=== PATIENT | male | born 1995 | race Caucasian/White ===

== ENCOUNTER 2018-08-28 20:18 | Inpatient (IN) | payer BC ==
[2018-08-28] MEDS ORDERED: Ketorolac 30 MG/ML SDV IVPUSH ONE (20:27)
[2018-08-28] MEDS ORDERED: Sodium Chloride 0.9% 2.5 ML Syringe FLUSH PRN (20:27)
[2018-08-28] MEDS ORDERED: Ondansetron 4 MG/2 ML SDV IVPUSH ONE (20:27)
[2018-08-28] MEDS ORDERED: Sodium Chloride 0.9% 1,000 ML IV ONE (20:27)
[2018-08-28] MEDS ORDERED: Sodium Chloride 0.9% 10 ML Syringe FLUSH PRN (20:27)
[2018-08-28] MEDS ORDERED: Insulin Regular, Human 100 Units/ML 10 ML Vial SUBCUT ONE (20:28)
--- NOTE | 2018-08-28 20:32 | EDM.PDOC ---
ED HPI GENERAL MEDICAL PROBLEM - General Chief Complaint: Diabetic Complaint Stated Complaint: DIABETIC ISSUES Time Seen by Provider: 08/28/18 20:22 - History of Present Illness INITIAL COMMENTS - FREE TEXT/NARRATIVE: HISTORY AND PHYSICAL: History of present illness: The patient is a 22-year-old male with a history of type 1 diabetes since he was 8 years old and has an insulin pump in place and says that he has not had any admissions to the hospital since he was a child presents with elevated blood sugars dry mouth and nausea. The patient says he is usually "on top of things" and was doing fine yesterday but today he did not have his blood sugar monitor and did not check his blood sugar and is sugar shot up. Usually he has his insulin pump and then gives boluses of insulin pending his blood sugar but he did not give himself any boluses today. He says he is watching his diet and has no other systemic issues such as fever chills upper respiratory symptoms abdominal pain or diarrhea. He says he is nauseated but has not vomited and he' s having diffuse chest pain since this escalated. He is not passing out or blacking out and he says he has not noticed if he has been urinating more than usual but there is no pain or burning with urination. He arrives via EMS and per EMS his blood sugar was 571. Insulin Pump was removed on arrival to the ED Review of systems: As per history of present illness and below otherwise all systems reviewed and negative. Past medical history: As per history of present illness and as reviewed below otherwise noncontributory. Surgical history: As per history of present illness and as reviewed below otherwise noncontributory. Social history: No reported history of drug or alcohol abuse. Family history: As per history of present illness and as reviewed below otherwise noncontributory. Physical exam: General: Well-developed well-nourished thin man who is nontoxic and speaking clearly and easily in the ED. His vital signs are noted by me HEENT: Atraumatic, normocephalic, pupils reactive, negative for conjunctival pallor or scleral icterus, mucous membranes very dry throat clear, neck supple, nontender, trachea midline. Lungs: Clear to auscultation, breath sounds equal bilaterally, chest nontender. No wheezing stridor or work of breathing Heart: S1S2, regular rhythm but tachycardic rate of my evaluation and no overt murmurs, negative for clicks, rubs, or JVD. Abdomen: Soft, nondistended, nontender. Negative for masses or hepatosplenomegaly. Slightly hypoactive bowel sounds Pelvis: Stable nontender. Genitourinary: Deferred. Rectal: Deferred. Extremities: Atraumatic, full range of motion without defects or deficits Neurovascular unremarkable. Neuro: Awake, alert, oriented. Cranial nerves II through XII unremarkable. Cerebellum unremarkable. Motor and sensory unremarkable throughout. Exam nonfocal. Diagnostics: EKG CBC CMP lipase UA serum ketones venous blood gas troponin chest x-ray Therapeutics: IV O2 monitor IV fluids Zofran Toradol insulin Please note that the patient got 1 L of normal saline per EMS prior to arrival. 2111: Case was discussed with Dr. Hensley our hospitalist who except the patient for admission. He is aware of the IV fluids at a been given as well as the meds. I've also discussed all testing results with the patient and the need for inpatient admission for DKA Impression: Diabetic ketoacidosis Definitive disposition and diagnosis as appropriate pending reevaluation and review of above. Chest Pain Score (Numeric/FACES): 8 - Related Data Allergies Allergy/AdvReac Type Severity Reaction Status Date / Time No Known Allergies Allergy Verified 08/28/18 20:23 Home Meds: Home Meds Insulin Aspart [NovoLOG] 1,000 unit .XX ASDIRECTED 08/28/18 [History] Sertraline [Zoloft] 0 mg PO DAILY 08/28/18 [History] Past Medical History Psychiatric History: Reports: Anxiety, Depression Endocrine/Metabolic History: Reports: Diabetes, Type I Social & Family History - Tobacco Use Smoking Status *Q: Current Every Day Smoker Years of Tobacco use: 6 Packs/Tins Daily: 1.5 - Recreational Drug Use Recreational Drug Use: No ED ROS GENERAL - Review of Systems Review Of Systems: ROS reveals no pertinent complaints other than HPI. ED EXAM GENERAL NO PERIP PULSE - Physical Exam Exam: See Below (see dictation) Course - Vital Signs Last Recorded V/S: Last Vital Signs Temp 37.0 C 08/28/18 20:20 Pulse 103 H 08/28/18 20:20 Resp 26 H 08/28/18 20:20 BP 140/86 08/28/18 20:20 Pulse Ox 99 08/28/18 20:29 - Orders/Labs/Meds Orders: Active Orders 24 hr Category Date Time Status Patient Status [ADT] Stat ADT 08/28/18 21:31 Ordered Blood Glucose Check, Bedside [RC] ONETIME Care 08/28/18 20:26 Active Cardiac Monitoring [RC] . DIRECTED Care 08/28/18 20:26 Active EKG Documentation Completion [RC] STAT Care 08/28/18 20:26 Active Oxygen Therapy, ED [RC] ASDIRECTED Care 08/28/18 20:26 Active Pulse Oximetry [RC] ASDIRECTED Care 08/28/18 20:26 Active Chest 1V Frontal [CR] Stat Exams 08/28/18 20:27 Taken Insulin Regular, Human [NovoLIN R] 100 unit Med 08/28/18 21:00 Active Sodium Chloride 0.9% [Normal Saline] 99 ml IV TITRATE Sodium Chloride 0.9% @ 125 MLS/HR (1,000ml) Med 08/28/18 21:45 Ordered Sodium Chloride 0.9% [Normal Saline] 1,000 ml IV ASDIRECTED Sodium Chloride 0.9% [Saline Flush] Med 08/28/18 20:27 Active 10 ml FLUSH ASDIRECTED PRN Sodium Chloride 0.9% [Saline Flush] Med 08/28/18 20:27 Active 2.5 ml FLUSH ASDIRECTED PRN Saline Lock Insert [OM.PC] Stat Oth 08/28/18 20:26 Ordered Medication Orders Insulin Human Regular 100 unit (/ Sodium Chloride) 100 mls @ 7 mls/hr IV TITRATE LIZANDRO; Protocol Sodium Chloride (Saline Flush) 10 ml FLUSH ASDIRECTED PRN PRN Reason: Keep Vein Open Last Admin: 08/28/18 20:56 Dose: 10 ml Sodium Chloride (Saline Flush) 2.5 ml FLUSH ASDIRECTED PRN PRN Reason: Keep Vein Open Last Admin: 08/28/18 20:57 Dose: 2.5 ml Labs: Laboratory Tests 08/28/18 08/28/18 08/28/18 Range/Units 20:23 20:25 20:25 WBC 13.40 H (4.0-11.0) K/uL RBC 5.09 (4.50-5.90) M/uL Hgb 15.1 (13.0-17.0) g/dL Hct 44.4 (38.0-50.0) % MCV 87.2 (80.0-98.0) fL MCH 29.7 (27.0-32.0) pg MCHC 34.0 (31.0-37.0) g/dL RDW Std Deviation 40.9 (28.0-62.0) fl RDW Coeff of Ally 13 (11.0-15.0) % Plt Count 260 (150-400) K/uL MPV 10.30 (7.40-12.00) fL Neut % (Auto) 72.7 (48.0-80.0) % Lymph % (Auto) 18.8 (16.0-40.0) % [place] % (Auto) 7.3 (0.0-15.0) % Eos % (Auto) 0.7 (0.0-7.0) % Baso % (Auto) 0.5 (0.0-1.5) % Neut # (Auto) 9.7 H (1.4-5.7) K/uL Lymph # (Auto) 2.5 H (0.6-2.4) K/uL [place] # (Auto) 1.0 H (0.0-0.8) K/uL Eos # (Auto) 0.1 (0.0-0.7) K/uL Baso # (Auto) 0.1 (0.0-0.1) K/uL Nucleated RBC % 0.0 /100WBC Nucleated RBCs # 0 K/uL VBG pH (7.31-7.41) VBG pCO2 (35-45) mmHG VBG pO2 (30-40) mmHG VBG HCO3 (22-30) mEq/L VBG Total CO2 (41-51) mmol/L VBG Base Excess (-3.0-3.0) Sodium 129 L (136-148) mmol/L Potassium 5.5 H (3.5-5.1) mmol/L Chloride 94 L (98-107) mmol/L Carbon Dioxide 7.9 L (21.0-32.0) mmol/L BUN 23 H (7.0-18.0) mg/dL Creatinine 1.2 (0.8-1.3) mg/dL Est Cr Clr Drug Dosing TNP Estimated GFR (MDRD) > 60.0 ml/min Glucose 564 H* (74-106) mg/dL POC Glucose > 500 H (60-110) mg/dL Calcium 9.8 (8.5-10.1) mg/dL Total Bilirubin 0.6 (0.2-1.0) mg/dL AST 22 (15-37) IU/L ALT 36 (14-63) IU/L Alkaline Phosphatase 93 (46-116) U/L Troponin I < 0.050 (0.000-0.056) ng/mL Total Protein 7.7 (6.4-8.2) g/dL Albumin 4.2 (3.4-5.0) g/dL Globulin 3.5 (2.6-4.0) g/dL Albumin/Globulin Ratio 1.2 (0.9-1.6) Lipase 54 L (73-393) U/L Urine Color Urine Appearance Urine pH (5.0-8.0) Ur Specific [place] (1.001-1.035) Urine Protein (NEGATIVE) mg/dL Urine Glucose (UA) (NEGATIVE) mg/dL Urine Ketones (NEGATIVE) mg/dL Urine Occult Blood (NEGATIVE) Urine Nitrite (NEGATIVE) Urine Bilirubin (NEGATIVE) Urine Urobilinogen (<2.0) EU/dL Ur Leukocyte Esterase (NEGATIVE) Urine RBC (0-2/HPF) Urine WBC (0-5/HPF) Ur Epithelial Cells (NONE-FEW) Urine Bacteria (NEGATIVE) Ketones (NEG) 08/28/18 08/28/18 08/28/18 Range/Units 20:25 20:35 20:36 WBC (4.0-11.0) K/uL RBC (4.50-5.90) M/uL Hgb (13.0-17.0) g/dL Hct (38.0-50.0) % MCV (80.0-98.0) fL MCH (27.0-32.0) pg MCHC (31.0-37.0) g/dL RDW Std Deviation (28.0-62.0) fl RDW Coeff of Ally (11.0-15.0) % Plt Count (150-400) K/uL MPV (7.40-12.00) fL Neut % (Auto) (48.0-80.0) % Lymph % (Auto) (16.0-40.0) % [place] % (Auto) (0.0-15.0) % Eos % (Auto) (0.0-7.0) % Baso % (Auto) (0.0-1.5) % Neut # (Auto) (1.4-5.7) K/uL Lymph # (Auto) (0.6-2.4) K/uL [place] # (Auto) (0.0-0.8) K/uL Eos # (Auto) (0.0-0.7) K/uL Baso # (Auto) (0.0-0.1) K/uL Nucleated RBC % /100WBC Nucleated RBCs # K/uL VBG pH 7.05 L (7.31-7.41) VBG pCO2 36 (35-45) mmHG VBG pO2 34 (30-40) mmHG VBG HCO3 10 L (22-30) mEq/L VBG Total CO2 10 L (41-51) mmol/L VBG Base Excess -19.9 L (-3.0-3.0) Sodium (136-148) mmol/L Potassium (3.5-5.1) mmol/L Chloride (98-107) mmol/L Carbon Dioxide (21.0-32.0) mmol/L BUN (7.0-18.0) mg/dL Creatinine (0.8-1.3) mg/dL Est Cr Clr Drug Dosing Estimated GFR (MDRD) ml/min Glucose (74-106) mg/dL POC Glucose (60-110) mg/dL Calcium (8.5-10.1) mg/dL Total Bilirubin (0.2-1.0) mg/dL AST (15-37) IU/L ALT (14-63) IU/L Alkaline Phosphatase (46-116) U/L Troponin I (0.000-0.056) ng/mL Total Protein (6.4-8.2) g/dL Albumin (3.4-5.0) g/dL Globulin (2.6-4.0) g/dL Albumin/Globulin Ratio (0.9-1.6) Lipase (73-393) U/L Urine Color YELLOW Urine Appearance CLEAR Urine pH 5.5 (5.0-8.0) Ur Specific [place] 1.020 (1.001-1.035) Urine Protein NEGATIVE (NEGATIVE) mg/dL Urine Glucose (UA) >=1000 (NEGATIVE) mg/dL Urine Ketones >=80 (NEGATIVE) mg/dL Urine Occult Blood NEGATIVE (NEGATIVE) Urine Nitrite NEGATIVE (NEGATIVE) Urine Bilirubin NEGATIVE (NEGATIVE) Urine Urobilinogen 0.2 (<2.0) EU/dL Ur Leukocyte Esterase NEGATIVE (NEGATIVE) Urine RBC 0-1 (0-2/HPF) Urine WBC 0-1 (0-5/HPF) Ur Epithelial Cells RARE (NONE-FEW) Urine Bacteria FEW (NEGATIVE) Ketones SMALL H (NEG) Meds: Medications Generic Name Dose Route Start Last Admin Trade Name Freq PRN Reason Stop Dose Admin Insulin Human Regular 100 unit 100 mls @ 7 mls/hr 08/28/18 21:00 / Sodium Chloride IV TITRATE LIZANDRO Protocol 7 UNIT/HR Sodium Chloride 10 ml 08/28/18 20:27 08/28/18 20:56 Saline Flush FLUSH 10 ml ASDIRECTED PRN Administration Keep Vein Open Sodium Chloride 2.5 ml 08/28/18 20:27 08/28/18 20:57 Saline Flush FLUSH 2.5 ml ASDIRECTED PRN Administration Keep Vein Open Discontinued Medications Generic Name Dose Route Start Last Admin Trade Name Freq PRN Reason Stop Dose Admin Sodium Chloride 1,000 mls @ 999 mls/hr 08/28/18 20:27 08/28/18 20:42 Normal Saline IV 08/28/18 21:27 999 mls/hr STAT ONE Administration Insulin Human Regular 15 unit 08/29/18 20:28 Novolin R SUBCUT 08/29/18 20:29 ONETIME ONE Protocol Insulin Human Regular 15 unit 08/28/18 20:28 08/28/18 20:56 Novolin R SUBCUT 08/28/18 20:29 15 units ONETIME ONE Administration Protocol Ketorolac Tromethamine 30 mg 08/28/18 20:27 08/28/18 20:43 Toradol IVPUSH 08/28/18 20:28 30 mg ONETIME ONE Administration Ondansetron HCl 4 mg 08/28/18 20:27 08/28/18 20:44 Zofran IVPUSH 08/28/18 20:28 4 mg ONETIME ONE Administration Departure - Departure Time of Disposition: 21:33 Disposition: Admitted As Inpatient 66 Condition: Good Clinical Impression: Diabetic ketoacidosis associated with type 1 diabetes mellitus Qualifiers: Diabetes mellitus complication detail: without coma Qualified Code(s): E10.10 - Type 1 diabetes mellitus with ketoacidosis without coma - Discharge Information Forms: ED Department Discharge - My Orders Last 24 Hours: My Active Orders 08/28/18 20:26 Blood Glucose Check, Bedside [RC] ONETIME Cardiac Monitoring [RC] . DIRECTED EKG Documentation Completion [RC] STAT Oxygen Therapy, ED [RC] ASDIRECTED Pulse Oximetry [RC] ASDIRECTED Saline Lock Insert [OM.PC] Stat 08/28/18 20:27 Chest 1V Frontal [CR] Stat Sodium Chloride 0.9% [Saline Flush] 10 ml FLUSH ASDIRECTED PRN Sodium Chloride 0.9% [Saline Flush] 2.5 ml FLUSH ASDIRECTED PRN 08/28/18 21:00 Insulin Regular, Human [NovoLIN R] 100 unit Sodium Chloride 0.9% [Normal Saline] 99 ml IV TITRATE 08/28/18 21:31 Patient Status [ADT] Stat 08/28/18 21:45 Sodium Chloride 0.9% @ 125 MLS/HR (1,000ml) Sodium Chloride 0.9% [Normal Saline ] 1,000 ml IV ASDIRECTED - Assessment/Plan Last 24 Hours: My Active Orders 08/28/18 20:26 Blood Glucose Check, Bedside [RC] ONETIME Cardiac Monitoring [RC] . DIRECTED EKG Documentation Completion [RC] STAT Oxygen Therapy, ED [RC] ASDIRECTED Pulse Oximetry [RC] ASDIRECTED Saline Lock Insert [OM.PC] Stat 08/28/18 20:27 Chest 1V Frontal [CR] Stat Sodium Chloride 0.9% [Saline Flush] 10 ml FLUSH ASDIRECTED PRN Sodium Chloride 0.9% [Saline Flush] 2.5 ml FLUSH ASDIRECTED PRN 08/28/18 21:00 Insulin Regular, Human [NovoLIN R] 100 unit Sodium Chloride 0.9% [Normal Saline] 99 ml IV TITRATE 08/28/18 21:31 Patient Status [ADT] Stat 08/28/18 21:45 Sodium Chloride 0.9% @ 125 MLS/HR (1,000ml) Sodium Chloride 0.9% [Normal Saline ] 1,000 ml IV ASDIRECTED
[2018-08-28 20:52] LABS: CHLORIDE,CL 94 mmol/L (98-107); SODIUM,NA 129 mmol/L (136-148)
[2018-08-28] MEDS ORDERED: Sodium Chloride 0.9% 1,000 ML IV SCH ×2 (21:45→23:15)
[2018-08-28] MEDS ORDERED: Ondansetron 4 MG Tab.DIS PO PRN (23:08)
--- NOTE | 2018-08-28 23:17 | PCM.HP ---
H&P History of Present Illness - General Date of Service: 08/28/18 Admit Problem/Dx: Admission Diagnosis/Problem Admission Diagnosis/Problem Ketoacidosis in patient with type 1 diabetes mellitus - History of Present Illness Initial Comments - Free Text/Narative: 22 yo male with pmh of type 1 DM who manages his blood sugars with an insulin pump. He states he usually checks his blood sugars 3-4 times a day and it usually varies between 100s to mid 200s. Today he had a tough day at work filled with anxiety due to his boss stressing him out about deadlines. He did not check his blood sugars all day nor did he eat. He developed abdominal pain and nausea tonight and came to the ED where his blood glucose was noted to be above 500 and noted to have a metabolic acidosis with anion gap. Chest Pain Score (Numeric/FACES): 8 - Related Data Allergies/Adverse Reactions: Allergies Allergy/AdvReac Type Severity Reaction Status Date / Time No Known Allergies Allergy Verified 08/28/18 20:23 Home Medications: Home Meds Insulin Aspart [NovoLOG] 1,000 unit .XX ASDIRECTED 08/28/18 [History] Sertraline [Zoloft] 0 mg PO DAILY 08/28/18 [History] Past Medical History Psychiatric History: Reports: Anxiety, Depression Endocrine/Metabolic History: Reports: Diabetes, Type I Social & Family History - Tobacco Use Smoking Status *Q: Current Every Day Smoker Years of Tobacco use: 6 Packs/Tins Daily: 1.5 - Recreational Drug Use Recreational Drug Use: No H&P Review of Systems - Review of Systems: Review Of Systems: ROS reveals no pertinent complaints other than HPI. Exam - Exam Exam: See Below - Vital Signs Vital Signs: Last Vital Signs Temp 37.0 C 08/28/18 20:20 Pulse 104 H 08/28/18 22:36 Resp 18 08/28/18 22:36 BP 132/75 08/28/18 22:36 Pulse Ox 99 08/28/18 22:36 Weight: 79.379 kg - Exam General: Alert, Oriented Neck: Supple, Trachea Midline Lungs: Clear to Auscultation, Normal Respiratory Effort Cardiovascular: Regular Rate, Regular Rhythm GI/Abdominal Exam: Soft, Non-Tender Extremities: Non-Tender Skin: Warm, Dry, Intact - Patient Data Lab Results Last 24 hrs: Laboratory Results - last 24 hr 08/28/18 08/28/18 08/28/18 Range/Units 20:23 20:25 20:25 WBC 13.40 H (4.0-11.0) K/uL RBC 5.09 (4.50-5.90) M/uL Hgb 15.1 (13.0-17.0) g/dL Hct 44.4 (38.0-50.0) % MCV 87.2 (80.0-98.0) fL MCH 29.7 (27.0-32.0) pg MCHC 34.0 (31.0-37.0) g/dL RDW Std Deviation 40.9 (28.0-62.0) fl RDW Coeff of Ally 13 (11.0-15.0) % Plt Count 260 (150-400) K/uL MPV 10.30 (7.40-12.00) fL Neut % (Auto) 72.7 (48.0-80.0) % Lymph % (Auto) 18.8 (16.0-40.0) % [place] % (Auto) 7.3 (0.0-15.0) % Eos % (Auto) 0.7 (0.0-7.0) % Baso % (Auto) 0.5 (0.0-1.5) % Neut # (Auto) 9.7 H (1.4-5.7) K/uL Lymph # (Auto) 2.5 H (0.6-2.4) K/uL [place] # (Auto) 1.0 H (0.0-0.8) K/uL Eos # (Auto) 0.1 (0.0-0.7) K/uL Baso # (Auto) 0.1 (0.0-0.1) K/uL Nucleated RBC % 0.0 /100WBC Nucleated RBCs # 0 K/uL VBG pH (7.31-7.41) VBG pCO2 (35-45) mmHG VBG pO2 (30-40) mmHG VBG HCO3 (22-30) mEq/L VBG Total CO2 (41-51) mmol/L VBG Base Excess (-3.0-3.0) Sodium 129 L (136-148) mmol/L Potassium 5.5 H (3.5-5.1) mmol/L Chloride 94 L (98-107) mmol/L Carbon Dioxide 7.9 L (21.0-32.0) mmol/L BUN 23 H (7.0-18.0) mg/dL Creatinine 1.2 (0.8-1.3) mg/dL Est Cr Clr Drug Dosing TNP Estimated GFR (MDRD) > 60.0 ml/min Glucose 564 H* (74-106) mg/dL POC Glucose > 500 H (60-110) mg/dL Calcium 9.8 (8.5-10.1) mg/dL Total Bilirubin 0.6 (0.2-1.0) mg/dL AST 22 (15-37) IU/L ALT 36 (14-63) IU/L Alkaline Phosphatase 93 (46-116) U/L Troponin I < 0.050 (0.000-0.056) ng/mL Total Protein 7.7 (6.4-8.2) g/dL Albumin 4.2 (3.4-5.0) g/dL Globulin 3.5 (2.6-4.0) g/dL Albumin/Globulin Ratio 1.2 (0.9-1.6) Lipase 54 L (73-393) U/L Urine Color Urine Appearance Urine pH (5.0-8.0) Ur Specific [place] (1.001-1.035) Urine Protein (NEGATIVE) mg/dL Urine Glucose (UA) (NEGATIVE) mg/dL Urine Ketones (NEGATIVE) mg/dL Urine Occult Blood (NEGATIVE) Urine Nitrite (NEGATIVE) Urine Bilirubin (NEGATIVE) Urine Urobilinogen (<2.0) EU/dL Ur Leukocyte Esterase (NEGATIVE) Urine RBC (0-2/HPF) Urine WBC (0-5/HPF) Ur Epithelial Cells (NONE-FEW) Urine Bacteria (NEGATIVE) Ketones (NEG) 08/28/18 08/28/18 08/28/18 Range/Units 20:25 20:35 20:36 WBC (4.0-11.0) K/uL RBC (4.50-5.90) M/uL Hgb (13.0-17.0) g/dL Hct (38.0-50.0) % MCV (80.0-98.0) fL MCH (27.0-32.0) pg MCHC (31.0-37.0) g/dL RDW Std Deviation (28.0-62.0) fl RDW Coeff of Ally (11.0-15.0) % Plt Count (150-400) K/uL MPV (7.40-12.00) fL Neut % (Auto) (48.0-80.0) % Lymph % (Auto) (16.0-40.0) % [place] % (Auto) (0.0-15.0) % Eos % (Auto) (0.0-7.0) % Baso % (Auto) (0.0-1.5) % Neut # (Auto) (1.4-5.7) K/uL Lymph # (Auto) (0.6-2.4) K/uL [place] # (Auto) (0.0-0.8) K/uL Eos # (Auto) (0.0-0.7) K/uL Baso # (Auto) (0.0-0.1) K/uL Nucleated RBC % /100WBC Nucleated RBCs # K/uL VBG pH 7.05 L (7.31-7.41) VBG pCO2 36 (35-45) mmHG VBG pO2 34 (30-40) mmHG VBG HCO3 10 L (22-30) mEq/L VBG Total CO2 10 L (41-51) mmol/L VBG Base Excess -19.9 L (-3.0-3.0) Sodium (136-148) mmol/L Potassium (3.5-5.1) mmol/L Chloride (98-107) mmol/L Carbon Dioxide (21.0-32.0) mmol/L BUN (7.0-18.0) mg/dL Creatinine (0.8-1.3) mg/dL Est Cr Clr Drug Dosing Estimated GFR (MDRD) ml/min Glucose (74-106) mg/dL POC Glucose (60-110) mg/dL Calcium (8.5-10.1) mg/dL Total Bilirubin (0.2-1.0) mg/dL AST (15-37) IU/L ALT (14-63) IU/L Alkaline Phosphatase (46-116) U/L Troponin I (0.000-0.056) ng/mL Total Protein (6.4-8.2) g/dL Albumin (3.4-5.0) g/dL Globulin (2.6-4.0) g/dL Albumin/Globulin Ratio (0.9-1.6) Lipase (73-393) U/L Urine Color YELLOW Urine Appearance CLEAR Urine pH 5.5 (5.0-8.0) Ur Specific [place] 1.020 (1.001-1.035) Urine Protein NEGATIVE (NEGATIVE) mg/dL Urine Glucose (UA) >=1000 (NEGATIVE) mg/dL Urine Ketones >=80 (NEGATIVE) mg/dL Urine Occult Blood NEGATIVE (NEGATIVE) Urine Nitrite NEGATIVE (NEGATIVE) Urine Bilirubin NEGATIVE (NEGATIVE) Urine Urobilinogen 0.2 (<2.0) EU/dL Ur Leukocyte Esterase NEGATIVE (NEGATIVE) Urine RBC 0-1 (0-2/HPF) Urine WBC 0-1 (0-5/HPF) Ur Epithelial Cells RARE (NONE-FEW) Urine Bacteria FEW (NEGATIVE) Ketones SMALL H (NEG) 08/28/18 Range/Units 21:47 WBC (4.0-11.0) K/uL RBC (4.50-5.90) M/uL Hgb (13.0-17.0) g/dL Hct (38.0-50.0) % MCV (80.0-98.0) fL MCH (27.0-32.0) pg MCHC (31.0-37.0) g/dL RDW Std Deviation (28.0-62.0) fl RDW Coeff of Ally (11.0-15.0) % Plt Count (150-400) K/uL MPV (7.40-12.00) fL Neut % (Auto) (48.0-80.0) % Lymph % (Auto) (16.0-40.0) % [place] % (Auto) (0.0-15.0) % Eos % (Auto) (0.0-7.0) % Baso % (Auto) (0.0-1.5) % Neut # (Auto) (1.4-5.7) K/uL Lymph # (Auto) (0.6-2.4) K/uL [place] # (Auto) (0.0-0.8) K/uL Eos # (Auto) (0.0-0.7) K/uL Baso # (Auto) (0.0-0.1) K/uL Nucleated RBC % /100WBC Nucleated RBCs # K/uL VBG pH (7.31-7.41) VBG pCO2 (35-45) mmHG VBG pO2 (30-40) mmHG VBG HCO3 (22-30) mEq/L VBG Total CO2 (41-51) mmol/L VBG Base Excess (-3.0-3.0) Sodium (136-148) mmol/L Potassium (3.5-5.1) mmol/L Chloride (98-107) mmol/L Carbon Dioxide (21.0-32.0) mmol/L BUN (7.0-18.0) mg/dL Creatinine (0.8-1.3) mg/dL Est Cr Clr Drug Dosing Estimated GFR (MDRD) ml/min Glucose (74-106) mg/dL POC Glucose 452 H (60-110) mg/dL Calcium (8.5-10.1) mg/dL Total Bilirubin (0.2-1.0) mg/dL AST (15-37) IU/L ALT (14-63) IU/L Alkaline Phosphatase (46-116) U/L Troponin I (0.000-0.056) ng/mL Total Protein (6.4-8.2) g/dL Albumin (3.4-5.0) g/dL Globulin (2.6-4.0) g/dL Albumin/Globulin Ratio (0.9-1.6) Lipase (73-393) U/L Urine Color Urine Appearance Urine pH (5.0-8.0) Ur Specific [place] (1.001-1.035) Urine Protein (NEGATIVE) mg/dL Urine Glucose (UA) (NEGATIVE) mg/dL Urine Ketones (NEGATIVE) mg/dL Urine Occult Blood (NEGATIVE) Urine Nitrite (NEGATIVE) Urine Bilirubin (NEGATIVE) Urine Urobilinogen (<2.0) EU/dL Ur Leukocyte Esterase (NEGATIVE) Urine RBC (0-2/HPF) Urine WBC (0-5/HPF) Ur Epithelial Cells (NONE-FEW) Urine Bacteria (NEGATIVE) Ketones (NEG) Result Diagrams: 08/29/18 03:16 08/29/18 12:10 Problem List Initiated/Reviewed/Updated: Yes Orders Last 24hrs: Active Orders 24 hr Category Date Time Status Patient Status [ADT] Stat ADT 08/28/18 21:31 Active Blood Glucose Check, Bedside [] ONETIME Care 08/28/18 20:26 Active Blood Glucose Check, Bedside [RC] Q1HR Care 08/28/18 23:12 Ordered Cardiac Monitoring [RC] . DIRECTED Care 08/28/18 20:26 Active EKG Documentation Completion [RC] STAT Care 08/28/18 20:26 Active Oxygen Therapy [RC] PRN Care 08/28/18 23:08 Ordered Oxygen Therapy, ED [RC] ASDIRECTED Care 08/28/18 20:26 Active Pulse Oximetry [RC] ASDIRECTED Care 08/28/18 20:26 Active Up ad Mary Lou [RC] ASDIRECTED Care 08/28/18 23:08 Ordered VTE/DVT Education [RC] PER UNIT ROUTINE Care 08/28/18 23:08 Ordered Vital Signs [RC] Q4H Care 08/28/18 23:08 Ordered Chest 1V Frontal [CR] Stat Exams 08/28/18 20:27 Taken BASIC METABOLIC PANEL,BMP [CHEM] Q4H Lab 08/28/18 23:08 Ordered BASIC METABOLIC PANEL,BMP [CHEM] Q4H Lab 08/29/18 03:08 Ordered BASIC METABOLIC PANEL,BMP [CHEM] Q4H Lab 08/29/18 07:08 Ordered BASIC METABOLIC PANEL,BMP [CHEM] Q4H Lab 08/29/18 11:08 Ordered BASIC METABOLIC PANEL,BMP [CHEM] Q4H Lab 08/29/18 15:08 Ordered BASIC METABOLIC PANEL,BMP [CHEM] Q4H Lab 08/29/18 19:08 Ordered CBC WITH AUTO DIFF [HEME] AM Lab 08/29/18 05:11 Ordered GLYCOSYLATED HEMOGLOBIN,HGBA1C [CHEM] AM Lab 08/29/18 05:11 Ordered Insulin Regular, Human [NovoLIN R] 100 unit Med 08/28/18 21:00 Active Sodium Chloride 0.9% [Normal Saline] 99 ml IV TITRATE Ondansetron [Zofran ODT] Med 08/28/18 23:08 Ordered 4 mg PO Q4H PRN Sodium Chloride 0.9% [Normal Saline] 1,000 ml Med 08/28/18 21:45 Active IV ASDIRECTED Sodium Chloride 0.9% [Normal Saline] 1,000 ml Med 08/28/18 23:15 Ordered IV ASDIRECTED Sodium Chloride 0.9% [Saline Flush] Med 08/28/18 20:27 Active 10 ml FLUSH ASDIRECTED PRN Sodium Chloride 0.9% [Saline Flush] Med 08/28/18 20:27 Active 2.5 ml FLUSH ASDIRECTED PRN Saline Lock Insert [OM.PC] Stat Oth 08/28/18 20:26 Ordered Sequential Compression Device [OM.PC] Per Unit Routine Oth 08/28/18 23:09 Ordered Resuscitation Status Routine Resus Stat 08/28/18 23:08 Ordered Medication Orders Insulin Human Regular 100 unit (/ Sodium Chloride) 100 mls @ 7 mls/hr IV TITRATE LIZANDRO; Protocol Last Admin: 08/28/18 21:58 Dose: 7 unit/hr, 7 mls/hr Sodium Chloride (Normal Saline) 1,000 mls @ 125 mls/hr IV ASDIRECTED LIZANDRO Last Admin: 08/28/18 21:38 Dose: 125 mls/hr Ondansetron HCl (Zofran Odt) 4 mg PO Q4H PRN PRN Reason: nausea, able to take PO Sodium Chloride (Saline Flush) 10 ml FLUSH ASDIRECTED PRN PRN Reason: Keep Vein Open Last Admin: 08/28/18 20:56 Dose: 10 ml Sodium Chloride (Saline Flush) 2.5 ml FLUSH ASDIRECTED PRN PRN Reason: Keep Vein Open Last Admin: 08/28/18 20:57 Dose: 2.5 ml Assessment/Plan Comment:: 22 yo male admitted for DKA. We will resuscitate with IV fluids and treat his ketoacidosis with insulin drip. We will trend BMP to ensure resolution of acidosis.
[2018-08-28 23:55] LABS: CHLORIDE,CL 99 mmol/L (98-107); SODIUM,NA 132 mmol/L (136-148)
[2018-08-29] MEDS ORDERED: Dextrose 5%-0.9% NaCl 1,000 ML IV SCH (00:45)
[2018-08-29 03:32] LABS: CHLORIDE,CL 105 mmol/L (98-107); SODIUM,NA 137 mmol/L (136-148)
[2018-08-29 03:36] LABS: HEMOGLOBIN A1C 10.7 % (4.5-6.2)
[2018-08-29] MEDS ORDERED: D5 1/2 NS w/ 20 mEq/L KCl 1,000 ML IV SCH (06:00)
[2018-08-29 08:45] LABS: CHLORIDE,CL 106 mmol/L (98-107); SODIUM,NA 135 mmol/L (136-148)
[2018-08-29] MEDS ORDERED: Potassium Phosphates 30 MMOLE in Sodium Chloride 0.9% 500 ML IV ONE (09:30)
[2018-08-29] MEDS ORDERED: Nicotine 21 MG/24 Hr Patch TRDERM SCH (12:45)
[2018-08-29 12:47] LABS: CHLORIDE,CL 107 mmol/L (98-107); SODIUM,NA 136 mmol/L (136-148)
[2018-08-29 12:54] LABS: CHLORIDE,CL 107 mmol/L (98-107); SODIUM,NA 137 mmol/L (136-148)
[2018-08-29] MEDS ORDERED: Magnesium Sulfate/Water 2 GM in Premix Bag 1 BAG IV ONE (13:09)
--- NOTE | 2018-08-29 13:27 | PCM.PN ---
- General Info Date of Service: 08/29/18 - Review of Systems Systems Review Comment:: abdominal pain and nausea have resolved. - Patient Data Vitals - Most Recent: Last Vital Signs Temp 36.8 C 08/29/18 12:00 Pulse 90 08/29/18 07:00 Resp 16 08/29/18 12:00 BP 115/62 08/29/18 12:00 Pulse Ox 98 08/29/18 12:00 Weight - Most Recent: 79.379 kg I&O - Last 24 Hours: Intake & Output 08/28/18 08/29/18 08/29/18 22:59 06:59 14:59 Intake Total 2569 Output Total 950 Balance 1619 Lab Results Last 24 Hours: Laboratory Results - last 24 hr 08/28/18 08/28/18 08/28/18 Range/Units 20:23 20:25 20:25 WBC 13.40 H (4.0-11.0) K/uL RBC 5.09 (4.50-5.90) M/uL Hgb 15.1 (13.0-17.0) g/dL Hct 44.4 (38.0-50.0) % MCV 87.2 (80.0-98.0) fL MCH 29.7 (27.0-32.0) pg MCHC 34.0 (31.0-37.0) g/dL RDW Std Deviation 40.9 (28.0-62.0) fl RDW Coeff of Ally 13 (11.0-15.0) % Plt Count 260 (150-400) K/uL MPV 10.30 (7.40-12.00) fL Neut % (Auto) 72.7 (48.0-80.0) % Lymph % (Auto) 18.8 (16.0-40.0) % [place] % (Auto) 7.3 (0.0-15.0) % Eos % (Auto) 0.7 (0.0-7.0) % Baso % (Auto) 0.5 (0.0-1.5) % Neut # (Auto) 9.7 H (1.4-5.7) K/uL Lymph # (Auto) 2.5 H (0.6-2.4) K/uL [place] # (Auto) 1.0 H (0.0-0.8) K/uL Eos # (Auto) 0.1 (0.0-0.7) K/uL Baso # (Auto) 0.1 (0.0-0.1) K/uL Nucleated RBC % 0.0 /100WBC Nucleated RBCs # 0 K/uL VBG pH (7.31-7.41) VBG pCO2 (35-45) mmHG VBG pO2 (30-40) mmHG VBG HCO3 (22-30) mEq/L VBG Total CO2 (41-51) mmol/L VBG Base Excess (-3.0-3.0) Lactate (0.20-2.00) mmol/L Sodium 129 L (136-148) mmol/L Potassium 5.5 H (3.5-5.1) mmol/L Chloride 94 L (98-107) mmol/L Carbon Dioxide 7.9 L (21.0-32.0) mmol/L Anion Gap BUN 23 H (7.0-18.0) mg/dL Creatinine 1.2 (0.8-1.3) mg/dL Est Cr Clr Drug Dosing TNP Estimated GFR (MDRD) > 60.0 ml/min BUN/Creatinine Ratio Glucose 564 H* (74-106) mg/dL POC Glucose > 500 H (60-110) mg/dL Hemoglobin A1c (4.5-6.2) % Calcium 9.8 (8.5-10.1) mg/dL Phosphorus (2.6-4.7) mg/dL Magnesium (1.8-2.4) mg/dL Total Bilirubin 0.6 (0.2-1.0) mg/dL AST 22 (15-37) IU/L ALT 36 (14-63) IU/L Alkaline Phosphatase 93 (46-116) U/L Troponin I < 0.050 (0.000-0.056) ng/mL Total Protein 7.7 (6.4-8.2) g/dL Albumin 4.2 (3.4-5.0) g/dL Globulin 3.5 (2.6-4.0) g/dL Albumin/Globulin Ratio 1.2 (0.9-1.6) Lipase 54 L (73-393) U/L Urine Color Urine Appearance Urine pH (5.0-8.0) Ur Specific [place] (1.001-1.035) Urine Protein (NEGATIVE) mg/dL Urine Glucose (UA) (NEGATIVE) mg/dL Urine Ketones (NEGATIVE) mg/dL Urine Occult Blood (NEGATIVE) Urine Nitrite (NEGATIVE) Urine Bilirubin (NEGATIVE) Urine Urobilinogen (<2.0) EU/dL Ur Leukocyte Esterase (NEGATIVE) Urine RBC (0-2/HPF) Urine WBC (0-5/HPF) Ur Epithelial Cells (NONE-FEW) Urine Bacteria (NEGATIVE) Ketones (NEG) 08/28/18 08/28/18 08/28/18 Range/Units 20:25 20:35 20:36 WBC (4.0-11.0) K/uL RBC (4.50-5.90) M/uL Hgb (13.0-17.0) g/dL Hct (38.0-50.0) % MCV (80.0-98.0) fL MCH (27.0-32.0) pg MCHC (31.0-37.0) g/dL RDW Std Deviation (28.0-62.0) fl RDW Coeff of Ally (11.0-15.0) % Plt Count (150-400) K/uL MPV (7.40-12.00) fL Neut % (Auto) (48.0-80.0) % Lymph % (Auto) (16.0-40.0) % [place] % (Auto) (0.0-15.0) % Eos % (Auto) (0.0-7.0) % Baso % (Auto) (0.0-1.5) % Neut # (Auto) (1.4-5.7) K/uL Lymph # (Auto) (0.6-2.4) K/uL [place] # (Auto) (0.0-0.8) K/uL Eos # (Auto) (0.0-0.7) K/uL Baso # (Auto) (0.0-0.1) K/uL Nucleated RBC % /100WBC Nucleated RBCs # K/uL VBG pH 7.05 L (7.31-7.41) VBG pCO2 36 (35-45) mmHG VBG pO2 34 (30-40) mmHG VBG HCO3 10 L (22-30) mEq/L VBG Total CO2 10 L (41-51) mmol/L VBG Base Excess -19.9 L (-3.0-3.0) Lactate (0.20-2.00) mmol/L Sodium (136-148) mmol/L Potassium (3.5-5.1) mmol/L Chloride (98-107) mmol/L Carbon Dioxide (21.0-32.0) mmol/L Anion Gap BUN (7.0-18.0) mg/dL Creatinine (0.8-1.3) mg/dL Est Cr Clr Drug Dosing Estimated GFR (MDRD) ml/min BUN/Creatinine Ratio Glucose (74-106) mg/dL POC Glucose (60-110) mg/dL Hemoglobin A1c (4.5-6.2) % Calcium (8.5-10.1) mg/dL Phosphorus (2.6-4.7) mg/dL Magnesium (1.8-2.4) mg/dL Total Bilirubin (0.2-1.0) mg/dL AST (15-37) IU/L ALT (14-63) IU/L Alkaline Phosphatase (46-116) U/L Troponin I (0.000-0.056) ng/mL Total Protein (6.4-8.2) g/dL Albumin (3.4-5.0) g/dL Globulin (2.6-4.0) g/dL Albumin/Globulin Ratio (0.9-1.6) Lipase (73-393) U/L Urine Color YELLOW Urine Appearance CLEAR Urine pH 5.5 (5.0-8.0) Ur Specific [place] 1.020 (1.001-1.035) Urine Protein NEGATIVE (NEGATIVE) mg/dL Urine Glucose (UA) >=1000 (NEGATIVE) mg/dL Urine Ketones >=80 (NEGATIVE) mg/dL Urine Occult Blood NEGATIVE (NEGATIVE) Urine Nitrite NEGATIVE (NEGATIVE) Urine Bilirubin NEGATIVE (NEGATIVE) Urine Urobilinogen 0.2 (<2.0) EU/dL Ur Leukocyte Esterase NEGATIVE (NEGATIVE) Urine RBC 0-1 (0-2/HPF) Urine WBC 0-1 (0-5/HPF) Ur Epithelial Cells RARE (NONE-FEW) Urine Bacteria FEW (NEGATIVE) Ketones SMALL H (NEG) 08/28/18 08/28/18 08/28/18 Range/Units 21:47 23:10 23:26 WBC (4.0-11.0) K/uL RBC (4.50-5.90) M/uL Hgb (13.0-17.0) g/dL Hct (38.0-50.0) % MCV (80.0-98.0) fL MCH (27.0-32.0) pg MCHC (31.0-37.0) g/dL RDW Std Deviation (28.0-62.0) fl RDW Coeff of Ally (11.0-15.0) % Plt Count (150-400) K/uL MPV (7.40-12.00) fL Neut % (Auto) (48.0-80.0) % Lymph % (Auto) (16.0-40.0) % [place] % (Auto) (0.0-15.0) % Eos % (Auto) (0.0-7.0) % Baso % (Auto) (0.0-1.5) % Neut # (Auto) (1.4-5.7) K/uL Lymph # (Auto) (0.6-2.4) K/uL [place] # (Auto) (0.0-0.8) K/uL Eos # (Auto) (0.0-0.7) K/uL Baso # (Auto) (0.0-0.1) K/uL Nucleated RBC % /100WBC Nucleated RBCs # K/uL VBG pH (7.31-7.41) VBG pCO2 (35-45) mmHG VBG pO2 (30-40) mmHG VBG HCO3 (22-30) mEq/L VBG Total CO2 (41-51) mmol/L VBG Base Excess (-3.0-3.0) Lactate (0.20-2.00) mmol/L Sodium 132 L (136-148) mmol/L Potassium 5.1 (3.5-5.1) mmol/L Chloride 99 (98-107) mmol/L Carbon Dioxide 8.6 L (21.0-32.0) mmol/L Anion Gap BUN 21 H (7.0-18.0) mg/dL Creatinine 1.1 (0.8-1.3) mg/dL Est Cr Clr Drug Dosing TNP Estimated GFR (MDRD) > 60.0 ml/min BUN/Creatinine Ratio Glucose 411 H (74-106) mg/dL POC Glucose 452 H 320 H (60-110) mg/dL Hemoglobin A1c (4.5-6.2) % Calcium 8.7 (8.5-10.1) mg/dL Phosphorus (2.6-4.7) mg/dL Magnesium (1.8-2.4) mg/dL Total Bilirubin (0.2-1.0) mg/dL AST (15-37) IU/L ALT (14-63) IU/L Alkaline Phosphatase (46-116) U/L Troponin I (0.000-0.056) ng/mL Total Protein (6.4-8.2) g/dL Albumin (3.4-5.0) g/dL Globulin (2.6-4.0) g/dL Albumin/Globulin Ratio (0.9-1.6) Lipase (73-393) U/L Urine Color Urine Appearance Urine pH (5.0-8.0) Ur Specific [place] (1.001-1.035) Urine Protein (NEGATIVE) mg/dL Urine Glucose (UA) (NEGATIVE) mg/dL Urine Ketones (NEGATIVE) mg/dL Urine Occult Blood (NEGATIVE) Urine Nitrite (NEGATIVE) Urine Bilirubin (NEGATIVE) Urine Urobilinogen (<2.0) EU/dL Ur Leukocyte Esterase (NEGATIVE) Urine RBC (0-2/HPF) Urine WBC (0-5/HPF) Ur Epithelial Cells (NONE-FEW) Urine Bacteria (NEGATIVE) Ketones (NEG) 08/28/18 08/29/18 08/29/18 Range/Units 23:26 00:26 01:27 WBC (4.0-11.0) K/uL RBC (4.50-5.90) M/uL Hgb (13.0-17.0) g/dL Hct (38.0-50.0) % MCV (80.0-98.0) fL MCH (27.0-32.0) pg MCHC (31.0-37.0) g/dL RDW Std Deviation (28.0-62.0) fl RDW Coeff of Ally (11.0-15.0) % Plt Count (150-400) K/uL MPV (7.40-12.00) fL Neut % (Auto) (48.0-80.0) % Lymph % (Auto) (16.0-40.0) % [place] % (Auto) (0.0-15.0) % Eos % (Auto) (0.0-7.0) % Baso % (Auto) (0.0-1.5) % Neut # (Auto) (1.4-5.7) K/uL Lymph # (Auto) (0.6-2.4) K/uL [place] # (Auto) (0.0-0.8) K/uL Eos # (Auto) (0.0-0.7) K/uL Baso # (Auto) (0.0-0.1) K/uL Nucleated RBC % /100WBC Nucleated RBCs # K/uL VBG pH (7.31-7.41) VBG pCO2 (35-45) mmHG VBG pO2 (30-40) mmHG VBG HCO3 (22-30) mEq/L VBG Total CO2 (41-51) mmol/L VBG Base Excess (-3.0-3.0) Lactate (0.20-2.00) mmol/L Sodium (136-148) mmol/L Potassium (3.5-5.1) mmol/L Chloride (98-107) mmol/L Carbon Dioxide (21.0-32.0) mmol/L Anion Gap BUN (7.0-18.0) mg/dL Creatinine (0.8-1.3) mg/dL Est Cr Clr Drug Dosing Estimated GFR (MDRD) ml/min BUN/Creatinine Ratio Glucose (74-106) mg/dL POC Glucose 313 H 262 H (60-110) mg/dL Hemoglobin A1c (4.5-6.2) % Calcium (8.5-10.1) mg/dL Phosphorus 4.2 (2.6-4.7) mg/dL Magnesium 2.2 (1.8-2.4) mg/dL Total Bilirubin (0.2-1.0) mg/dL AST (15-37) IU/L ALT (14-63) IU/L Alkaline Phosphatase (46-116) U/L Troponin I (0.000-0.056) ng/mL Total Protein (6.4-8.2) g/dL Albumin (3.4-5.0) g/dL Globulin (2.6-4.0) g/dL Albumin/Globulin Ratio (0.9-1.6) Lipase (73-393) U/L Urine Color Urine Appearance Urine pH (5.0-8.0) Ur Specific [place] (1.001-1.035) Urine Protein (NEGATIVE) mg/dL Urine Glucose (UA) (NEGATIVE) mg/dL Urine Ketones (NEGATIVE) mg/dL Urine Occult Blood (NEGATIVE) Urine Nitrite (NEGATIVE) Urine Bilirubin (NEGATIVE) Urine Urobilinogen (<2.0) EU/dL Ur Leukocyte Esterase (NEGATIVE) Urine RBC (0-2/HPF) Urine WBC (0-5/HPF) Ur Epithelial Cells (NONE-FEW) Urine Bacteria (NEGATIVE) Ketones (NEG) 08/29/18 08/29/18 08/29/18 Range/Units 02:29 03:16 03:16 WBC 15.14 H (4.0-11.0) K/uL RBC 4.90 (4.50-5.90) M/uL Hgb 14.6 (13.0-17.0) g/dL Hct 41.5 (38.0-50.0) % MCV 84.7 (80.0-98.0) fL MCH 29.8 (27.0-32.0) pg MCHC 35.2 (31.0-37.0) g/dL RDW Std Deviation 39.2 (28.0-62.0) fl RDW Coeff of [place] 13 (11.0-15.0) % Plt Count 227 (150-400) K/uL MPV 9.90 (7.40-12.00) fL Neut % (Auto) 72.2 (48.0-80.0) % Lymph % (Auto) 19.5 (16.0-40.0) % [place] % (Auto) 7.9 (0.0-15.0) % Eos % (Auto) 0.2 (0.0-7.0) % Baso % (Auto) 0.2 (0.0-1.5) % Neut # (Auto) 10.9 H (1.4-5.7) K/uL Lymph # (Auto) 3.0 H (0.6-2.4) K/uL [place] # (Auto) 1.2 H (0.0-0.8) K/uL Eos # (Auto) 0.0 (0.0-0.7) K/uL Baso # (Auto) 0.0 (0.0-0.1) K/uL Nucleated RBC % 0.0 /100WBC Nucleated RBCs # 0 K/uL VBG pH (7.31-7.41) VBG pCO2 (35-45) mmHG VBG pO2 (30-40) mmHG VBG HCO3 (22-30) mEq/L VBG Total CO2 (41-51) mmol/L VBG Base Excess (-3.0-3.0) Lactate (0.20-2.00) mmol/L Sodium 137 (136-148) mmol/L Potassium 4.1 (3.5-5.1) mmol/L Chloride 105 (98-107) mmol/L Carbon Dioxide 13.7 L (21.0-32.0) mmol/L Anion Gap BUN 17 (7.0-18.0) mg/dL Creatinine 1.2 (0.8-1.3) mg/dL Est Cr Clr Drug Dosing 108.41 Estimated GFR (MDRD) > 60.0 ml/min BUN/Creatinine Ratio Glucose 241 H (74-106) mg/dL POC Glucose 213 H (60-110) mg/dL Hemoglobin A1c (4.5-6.2) % Calcium 8.6 (8.5-10.1) mg/dL Phosphorus (2.6-4.7) mg/dL Magnesium (1.8-2.4) mg/dL Total Bilirubin (0.2-1.0) mg/dL AST (15-37) IU/L ALT (14-63) IU/L Alkaline Phosphatase (46-116) U/L Troponin I (0.000-0.056) ng/mL Total Protein (6.4-8.2) g/dL Albumin (3.4-5.0) g/dL Globulin (2.6-4.0) g/dL Albumin/Globulin Ratio (0.9-1.6) Lipase (73-393) U/L Urine Color Urine Appearance Urine pH (5.0-8.0) Ur Specific [place] (1.001-1.035) Urine Protein (NEGATIVE) mg/dL Urine Glucose (UA) (NEGATIVE) mg/dL Urine Ketones (NEGATIVE) mg/dL Urine Occult Blood (NEGATIVE) Urine Nitrite (NEGATIVE) Urine Bilirubin (NEGATIVE) Urine Urobilinogen (<2.0) EU/dL Ur Leukocyte Esterase (NEGATIVE) Urine RBC (0-2/HPF) Urine WBC (0-5/HPF) Ur Epithelial Cells (NONE-FEW) Urine Bacteria (NEGATIVE) Ketones (NEG) 08/29/18 08/29/18 08/29/18 Range/Units 03:16 04:14 05:20 WBC (4.0-11.0) K/uL RBC (4.50-5.90) M/uL Hgb (13.0-17.0) g/dL Hct (38.0-50.0) % MCV (80.0-98.0) fL MCH (27.0-32.0) pg MCHC (31.0-37.0) g/dL RDW Std Deviation (28.0-62.0) fl RDW Coeff of [place] (11.0-15.0) % Plt Count (150-400) K/uL MPV (7.40-12.00) fL Neut % (Auto) (48.0-80.0) % Lymph % (Auto) (16.0-40.0) % [place] % (Auto) (0.0-15.0) % Eos % (Auto) (0.0-7.0) % Baso % (Auto) (0.0-1.5) % Neut # (Auto) (1.4-5.7) K/uL Lymph # (Auto) (0.6-2.4) K/uL [place] # (Auto) (0.0-0.8) K/uL Eos # (Auto) (0.0-0.7) K/uL Baso # (Auto) (0.0-0.1) K/uL Nucleated RBC % /100WBC Nucleated RBCs # K/uL VBG pH (7.31-7.41) VBG pCO2 (35-45) mmHG VBG pO2 (30-40) mmHG VBG HCO3 (22-30) mEq/L VBG Total CO2 (41-51) mmol/L VBG Base Excess (-3.0-3.0) Lactate (0.20-2.00) mmol/L Sodium (136-148) mmol/L Potassium (3.5-5.1) mmol/L Chloride (98-107) mmol/L Carbon Dioxide (21.0-32.0) mmol/L Anion Gap BUN (7.0-18.0) mg/dL Creatinine (0.8-1.3) mg/dL Est Cr Clr Drug Dosing Estimated GFR (MDRD) ml/min BUN/Creatinine Ratio Glucose (74-106) mg/dL POC Glucose 228 H 198 H (60-110) mg/dL Hemoglobin A1c 10.7 H (4.5-6.2) % Calcium (8.5-10.1) mg/dL Phosphorus (2.6-4.7) mg/dL Magnesium (1.8-2.4) mg/dL Total Bilirubin (0.2-1.0) mg/dL AST (15-37) IU/L ALT (14-63) IU/L Alkaline Phosphatase (46-116) U/L Troponin I (0.000-0.056) ng/mL Total Protein (6.4-8.2) g/dL Albumin (3.4-5.0) g/dL Globulin (2.6-4.0) g/dL Albumin/Globulin Ratio (0.9-1.6) Lipase (73-393) U/L Urine Color Urine Appearance Urine pH (5.0-8.0) Ur Specific [place] (1.001-1.035) Urine Protein (NEGATIVE) mg/dL Urine Glucose (UA) (NEGATIVE) mg/dL Urine Ketones (NEGATIVE) mg/dL Urine Occult Blood (NEGATIVE) Urine Nitrite (NEGATIVE) Urine Bilirubin (NEGATIVE) Urine Urobilinogen (<2.0) EU/dL Ur Leukocyte Esterase (NEGATIVE) Urine RBC (0-2/HPF) Urine WBC (0-5/HPF) Ur Epithelial Cells (NONE-FEW) Urine Bacteria (NEGATIVE) Ketones (NEG) 08/29/18 08/29/18 08/29/18 Range/Units 06:19 07:26 08:00 WBC (4.0-11.0) K/uL RBC (4.50-5.90) M/uL Hgb (13.0-17.0) g/dL Hct (38.0-50.0) % MCV (80.0-98.0) fL MCH (27.0-32.0) pg MCHC (31.0-37.0) g/dL RDW Std Deviation (28.0-62.0) fl RDW Coeff of [place] (11.0-15.0) % Plt Count (150-400) K/uL MPV (7.40-12.00) fL Neut % (Auto) (48.0-80.0) % Lymph % (Auto) (16.0-40.0) % [place] % (Auto) (0.0-15.0) % Eos % (Auto) (0.0-7.0) % Baso % (Auto) (0.0-1.5) % Neut # (Auto) (1.4-5.7) K/uL Lymph # (Auto) (0.6-2.4) K/uL [place] # (Auto) (0.0-0.8) K/uL Eos # (Auto) (0.0-0.7) K/uL Baso # (Auto) (0.0-0.1) K/uL Nucleated RBC % /100WBC Nucleated RBCs # K/uL VBG pH (7.31-7.41) VBG pCO2 (35-45) mmHG VBG pO2 (30-40) mmHG VBG HCO3 (22-30) mEq/L VBG Total CO2 (41-51) mmol/L VBG Base Excess (-3.0-3.0) Lactate (0.20-2.00) mmol/L Sodium 135 L (136-148) mmol/L Potassium 3.4 L (3.5-5.1) mmol/L Chloride 106 (98-107) mmol/L Carbon Dioxide 20.0 L (21.0-32.0) mmol/L Anion Gap BUN 14 (7.0-18.0) mg/dL Creatinine 1.1 (0.8-1.3) mg/dL Est Cr Clr Drug Dosing 118.27 Estimated GFR (MDRD) > 60.0 ml/min BUN/Creatinine Ratio Glucose 213 H (74-106) mg/dL POC Glucose 227 H 211 H (60-110) mg/dL Hemoglobin A1c (4.5-6.2) % Calcium 8.8 (8.5-10.1) mg/dL Phosphorus (2.6-4.7) mg/dL Magnesium (1.8-2.4) mg/dL Total Bilirubin (0.2-1.0) mg/dL AST (15-37) IU/L ALT (14-63) IU/L Alkaline Phosphatase (46-116) U/L Troponin I (0.000-0.056) ng/mL Total Protein (6.4-8.2) g/dL Albumin (3.4-5.0) g/dL Globulin (2.6-4.0) g/dL Albumin/Globulin Ratio (0.9-1.6) Lipase (73-393) U/L Urine Color Urine Appearance Urine pH (5.0-8.0) Ur Specific [place] (1.001-1.035) Urine Protein (NEGATIVE) mg/dL Urine Glucose (UA) (NEGATIVE) mg/dL Urine Ketones (NEGATIVE) mg/dL Urine Occult Blood (NEGATIVE) Urine Nitrite (NEGATIVE) Urine Bilirubin (NEGATIVE) Urine Urobilinogen (<2.0) EU/dL Ur Leukocyte Esterase (NEGATIVE) Urine RBC (0-2/HPF) Urine WBC (0-5/HPF) Ur Epithelial Cells (NONE-FEW) Urine Bacteria (NEGATIVE) Ketones (NEG) 08/29/18 08/29/18 08/29/18 Range/Units 08:00 08:29 09:21 WBC (4.0-11.0) K/uL RBC (4.50-5.90) M/uL Hgb (13.0-17.0) g/dL Hct (38.0-50.0) % MCV (80.0-98.0) fL MCH (27.0-32.0) pg MCHC (31.0-37.0) g/dL RDW Std Deviation (28.0-62.0) fl RDW Coeff of [place] (11.0-15.0) % Plt Count (150-400) K/uL MPV (7.40-12.00) fL Neut % (Auto) (48.0-80.0) % Lymph % (Auto) (16.0-40.0) % [place] % (Auto) (0.0-15.0) % Eos % (Auto) (0.0-7.0) % Baso % (Auto) (0.0-1.5) % Neut # (Auto) (1.4-5.7) K/uL Lymph # (Auto) (0.6-2.4) K/uL [place] # (Auto) (0.0-0.8) K/uL Eos # (Auto) (0.0-0.7) K/uL Baso # (Auto) (0.0-0.1) K/uL Nucleated RBC % /100WBC Nucleated RBCs # K/uL VBG pH (7.31-7.41) VBG pCO2 (35-45) mmHG VBG pO2 (30-40) mmHG VBG HCO3 (22-30) mEq/L VBG Total CO2 (41-51) mmol/L VBG Base Excess (-3.0-3.0) Lactate (0.20-2.00) mmol/L Sodium (136-148) mmol/L Potassium (3.5-5.1) mmol/L Chloride (98-107) mmol/L Carbon Dioxide (21.0-32.0) mmol/L Anion Gap BUN (7.0-18.0) mg/dL Creatinine (0.8-1.3) mg/dL Est Cr Clr Drug Dosing Estimated GFR (MDRD) ml/min BUN/Creatinine Ratio Glucose (74-106) mg/dL POC Glucose 154 H 102 (60-110) mg/dL Hemoglobin A1c (4.5-6.2) % Calcium (8.5-10.1) mg/dL Phosphorus 2.2 L (2.6-4.7) mg/dL Magnesium 1.9 (1.8-2.4) mg/dL Total Bilirubin (0.2-1.0) mg/dL AST (15-37) IU/L ALT (14-63) IU/L Alkaline Phosphatase (46-116) U/L Troponin I (0.000-0.056) ng/mL Total Protein (6.4-8.2) g/dL Albumin (3.4-5.0) g/dL Globulin (2.6-4.0) g/dL Albumin/Globulin Ratio (0.9-1.6) Lipase (73-393) U/L Urine Color Urine Appearance Urine pH (5.0-8.0) Ur Specific [place] (1.001-1.035) Urine Protein (NEGATIVE) mg/dL Urine Glucose (UA) (NEGATIVE) mg/dL Urine Ketones (NEGATIVE) mg/dL Urine Occult Blood (NEGATIVE) Urine Nitrite (NEGATIVE) Urine Bilirubin (NEGATIVE) Urine Urobilinogen (<2.0) EU/dL Ur Leukocyte Esterase (NEGATIVE) Urine RBC (0-2/HPF) Urine WBC (0-5/HPF) Ur Epithelial Cells (NONE-FEW) Urine Bacteria (NEGATIVE) Ketones (NEG) 08/29/18 08/29/18 08/29/18 Range/Units 09:58 10:31 11:01 WBC (4.0-11.0) K/uL RBC (4.50-5.90) M/uL Hgb (13.0-17.0) g/dL Hct (38.0-50.0) % MCV (80.0-98.0) fL MCH (27.0-32.0) pg MCHC (31.0-37.0) g/dL RDW Std Deviation (28.0-62.0) fl RDW Coeff of Ally (11.0-15.0) % Plt Count (150-400) K/uL MPV (7.40-12.00) fL Neut % (Auto) (48.0-80.0) % Lymph % (Auto) (16.0-40.0) % [place] % (Auto) (0.0-15.0) % Eos % (Auto) (0.0-7.0) % Baso % (Auto) (0.0-1.5) % Neut # (Auto) (1.4-5.7) K/uL Lymph # (Auto) (0.6-2.4) K/uL [place] # (Auto) (0.0-0.8) K/uL Eos # (Auto) (0.0-0.7) K/uL Baso # (Auto) (0.0-0.1) K/uL Nucleated RBC % /100WBC Nucleated RBCs # K/uL VBG pH (7.31-7.41) VBG pCO2 (35-45) mmHG VBG pO2 (30-40) mmHG VBG HCO3 (22-30) mEq/L VBG Total CO2 (41-51) mmol/L VBG Base Excess (-3.0-3.0) Lactate 1.1 (0.20-2.00) mmol/L Sodium (136-148) mmol/L Potassium (3.5-5.1) mmol/L Chloride (98-107) mmol/L Carbon Dioxide (21.0-32.0) mmol/L Anion Gap BUN (7.0-18.0) mg/dL Creatinine (0.8-1.3) mg/dL Est Cr Clr Drug Dosing Estimated GFR (MDRD) ml/min BUN/Creatinine Ratio Glucose (74-106) mg/dL POC Glucose 46 L 123 H (60-110) mg/dL Hemoglobin A1c (4.5-6.2) % Calcium (8.5-10.1) mg/dL Phosphorus (2.6-4.7) mg/dL Magnesium (1.8-2.4) mg/dL Total Bilirubin (0.2-1.0) mg/dL AST (15-37) IU/L ALT (14-63) IU/L Alkaline Phosphatase (46-116) U/L Troponin I (0.000-0.056) ng/mL Total Protein (6.4-8.2) g/dL Albumin (3.4-5.0) g/dL Globulin (2.6-4.0) g/dL Albumin/Globulin Ratio (0.9-1.6) Lipase (73-393) U/L Urine Color Urine Appearance Urine pH (5.0-8.0) Ur Specific [place] (1.001-1.035) Urine Protein (NEGATIVE) mg/dL Urine Glucose (UA) (NEGATIVE) mg/dL Urine Ketones (NEGATIVE) mg/dL Urine Occult Blood (NEGATIVE) Urine Nitrite (NEGATIVE) Urine Bilirubin (NEGATIVE) Urine Urobilinogen (<2.0) EU/dL Ur Leukocyte Esterase (NEGATIVE) Urine RBC (0-2/HPF) Urine WBC (0-5/HPF) Ur Epithelial Cells (NONE-FEW) Urine Bacteria (NEGATIVE) Ketones (NEG) 08/29/18 08/29/18 08/29/18 Range/Units 11:59 12:10 12:10 WBC (4.0-11.0) K/uL RBC (4.50-5.90) M/uL Hgb (13.0-17.0) g/dL Hct (38.0-50.0) % MCV (80.0-98.0) fL MCH (27.0-32.0) pg MCHC (31.0-37.0) g/dL RDW Std Deviation (28.0-62.0) fl RDW Coeff of Ally (11.0-15.0) % Plt Count (150-400) K/uL MPV (7.40-12.00) fL Neut % (Auto) (48.0-80.0) % Lymph % (Auto) (16.0-40.0) % [place] % (Auto) (0.0-15.0) % Eos % (Auto) (0.0-7.0) % Baso % (Auto) (0.0-1.5) % Neut # (Auto) (1.4-5.7) K/uL Lymph # (Auto) (0.6-2.4) K/uL [place] # (Auto) (0.0-0.8) K/uL Eos # (Auto) (0.0-0.7) K/uL Baso # (Auto) (0.0-0.1) K/uL Nucleated RBC % /100WBC Nucleated RBCs # K/uL VBG pH (7.31-7.41) VBG pCO2 (35-45) mmHG VBG pO2 (30-40) mmHG VBG HCO3 (22-30) mEq/L VBG Total CO2 (41-51) mmol/L VBG Base Excess (-3.0-3.0) Lactate (0.20-2.00) mmol/L Sodium 136 137 (136-148) mmol/L Potassium 4.4 4.5 (3.5-5.1) mmol/L Chloride 107 107 (98-107) mmol/L Carbon Dioxide 17.9 L 18.7 L (21.0-32.0) mmol/L Anion Gap 15.8 BUN 14 14 (7.0-18.0) mg/dL Creatinine 1.0 0.9 (0.8-1.3) mg/dL Est Cr Clr Drug Dosing 130.09 144.55 Estimated GFR (MDRD) > 60.0 > 60.0 ml/min BUN/Creatinine Ratio 15.55 Glucose 184 H 185 H (74-106) mg/dL POC Glucose 154 H (60-110) mg/dL Hemoglobin A1c (4.5-6.2) % Calcium 8.2 L 8.3 L (8.5-10.1) mg/dL Phosphorus 4.1 (2.6-4.7) mg/dL Magnesium 1.7 L (1.8-2.4) mg/dL Total Bilirubin (0.2-1.0) mg/dL AST (15-37) IU/L ALT (14-63) IU/L Alkaline Phosphatase (46-116) U/L Troponin I (0.000-0.056) ng/mL Total Protein (6.4-8.2) g/dL Albumin 3.1 L (3.4-5.0) g/dL Globulin (2.6-4.0) g/dL Albumin/Globulin Ratio (0.9-1.6) Lipase (73-393) U/L Urine Color Urine Appearance Urine pH (5.0-8.0) Ur Specific [place] (1.001-1.035) Urine Protein (NEGATIVE) mg/dL Urine Glucose (UA) (NEGATIVE) mg/dL Urine Ketones (NEGATIVE) mg/dL Urine Occult Blood (NEGATIVE) Urine Nitrite (NEGATIVE) Urine Bilirubin (NEGATIVE) Urine Urobilinogen (<2.0) EU/dL Ur Leukocyte Esterase (NEGATIVE) Urine RBC (0-2/HPF) Urine WBC (0-5/HPF) Ur Epithelial Cells (NONE-FEW) Urine Bacteria (NEGATIVE) Ketones (NEG) Med Orders - Current: Current Medications Sodium Chloride (Normal Saline) 1,000 mls @ 125 mls/hr IV ASDIRECTED LIZANDRO Last Admin: 08/28/18 21:38 Dose: 125 mls/hr Sodium Chloride (Normal Saline) 1,000 mls @ 200 mls/hr IV ASDIRECTED LIZANDRO Last Admin: 08/28/18 23:36 Dose: 200 mls/hr Potassium Chloride/Dextrose/Sod Cl (D5 1/2 Ns W/ 20 Meq/L Kcl) 1,000 mls @ 150 mls/hr IV ASDIRECTED LIZANDRO Last Infusion: 08/29/18 10:38 Dose: 100 mls/hr Insulin Human Regular 100 unit (/ Sodium Chloride) 100 mls @ 27 mls/hr IV TITRATE LIZANDRO; Protocol Last Titration: 08/29/18 10:30 Dose: 0 unit/hr, 0 mls/hr Potassium Phosphate 30 mmole/ (Sodium Chloride) 510 mls @ 127.5 mls/hr IV NOW ONE Stop: 08/29/18 13:29 Last Admin: 08/29/18 09:32 Dose: 127.5 mls/hr Magnesium Sulfate 2 gm/ Premix 50 mls @ 50 mls/hr IV ONETIME ONE Stop: 08/29/18 14:08 Nicotine (Habitrol) 21 mg TRDERM Q24H LIZANDRO Last Admin: 08/29/18 13:06 Dose: 21 mg Ondansetron HCl (Zofran Odt) 4 mg PO Q4H PRN PRN Reason: nausea, able to take PO Sodium Chloride (Saline Flush) 10 ml FLUSH ASDIRECTED PRN PRN Reason: Keep Vein Open Last Admin: 08/28/18 20:56 Dose: 10 ml Sodium Chloride (Saline Flush) 2.5 ml FLUSH ASDIRECTED PRN PRN Reason: Keep Vein Open Last Admin: 08/28/18 20:57 Dose: 2.5 ml Discontinued Medications Sodium Chloride (Normal Saline) 1,000 mls @ 999 mls/hr IV STAT ONE Stop: 08/28/18 21:27 Last Admin: 08/28/18 20:42 Dose: 999 mls/hr Insulin Human Regular 100 unit (/ Sodium Chloride) 100 mls @ 7 mls/hr IV TITRATE LIZANDRO; Protocol Last Titration: 08/29/18 08:33 Dose: Infused Dextrose/Sodium Chloride (Dextrose 5%-Normal Saline) 1,000 mls @ 200 mls/hr IV ASDIRECTED LIZANDRO Last Admin: 08/29/18 02:37 Dose: 200 mls/hr Potassium Chloride 20 meq/ (Dextrose/Sodium Chloride) 1,010 mls @ 150 mls/hr IV ASDIRECTED LIZANDRO Insulin Human Regular (Novolin R) 15 unit SUBCUT ONETIME ONE; Protocol Stop: 08/29/18 20:29 Insulin Human Regular (Novolin R) 15 unit SUBCUT ONETIME ONE; Protocol Stop: 08/28/18 20:29 Last Admin: 08/28/18 20:56 Dose: 15 units Ketorolac Tromethamine (Toradol) 30 mg IVPUSH ONETIME ONE Stop: 08/28/18 20:28 Last Admin: 08/28/18 20:43 Dose: 30 mg Ondansetron HCl (Zofran) 4 mg IVPUSH ONETIME ONE Stop: 08/28/18 20:28 Last Admin: 08/28/18 20:44 Dose: 4 mg - Exam General: Alert, Oriented Lungs: Clear to Auscultation, Normal Respiratory Effort Cardiovascular: Regular Rate, Regular Rhythm GI/Abdominal Exam: Soft, Non-Tender Skin: Warm, Dry, Intact - Problem List Review Problem List Initiated/Reviewed/Updated: Yes - My Orders Last 24 Hours: My Active Orders 08/28/18 23:08 Oxygen Therapy [RC] PRN Up ad [place] [RC] ASDIRECTED VTE/DVT Education [RC] PER UNIT ROUTINE Vital Signs [RC] Q1H Ondansetron [Zofran ODT] 4 mg PO Q4H PRN Resuscitation Status Routine 08/28/18 23:09 Sequential Compression Device [OM.PC] Per Unit Routine 08/28/18 23:12 Blood Glucose Check, Bedside [RC] Q1HR 08/28/18 23:15 Sodium Chloride 0.9% [Normal Saline] 1,000 ml IV ASDIRECTED 08/29/18 07:35 Insulin Regular, Human [NovoLIN R] 100 unit Sodium Chloride 0.9% [Normal Saline] 99 ml IV TITRATE 08/29/18 12:45 Nicotine [Habitrol] 21 mg TRDERM Q24H 08/29/18 Lunch ADA Diabetic [[place] [employer] Diet] [DIET] 08/30/18 05:11 BASIC METABOLIC PANEL,BMP [CHEM] AM CBC WITH AUTO DIFF [HEME] AM - Plan Plan:: 22 yo male admitted for DKA. Metabolic acidosis is resolving. We will restart insulin pump and continue to monitor to ensure proper glucose control.
[2018-08-29] MEDS ORDERED: Insulin Regular, Human 100 Units/ML 10 ML Vial SUBCUT ONE (20:28)
[2018-08-30 06:52] LABS: CHLORIDE,CL 105 mmol/L (98-107); SODIUM,NA 137 mmol/L (136-148)
--- NOTE | 2018-08-30 08:33 | PCM.DCSUM1 ---
Discharge Summary - Discharge Data Discharge Date: 08/30/18 Discharge Disposition: Home, Self-Care 01 Condition: Good - Patient Summary/Data Hospital Course: 22 yo male who was admitted for diabetic ketoacidosis. He has a history of type 1 DM who manages his blood sugars with an insulin pump. He had a hard day at work and did not check his blood sugars which resulted in his diabetic crisis. He was treated with IV fluids and insulin drip. He was switch to his insulin pump and monitored overnight and he still maintained good glucose control. He was discharged home today with a follow up at [facility]. - Discharge Plan Home Medications: Home Meds Insulin Aspart [NovoLOG] 1,000 unit .XX ASDIRECTED 08/28/18 [History] Sertraline [Zoloft] 0 mg PO DAILY 08/28/18 [History] Forms: ED Department Discharge Referrals: PCP,None [Primary Care Provider] - - Discharge Summary/Plan Comment DC Time >30 min.: No - Patient Data Vitals - Most Recent: Last Vital Signs Temp 36.7 C 08/30/18 04:00 Pulse 78 08/30/18 04:00 Resp 19 08/30/18 04:00 BP 99/51 L 08/30/18 04:00 Pulse Ox 97 08/30/18 04:00 Weight - Most Recent: 77.5 kg I&O - Last 24 hours: Intake & Output 08/29/18 08/30/18 08/30/18 22:59 06:59 14:59 Intake Total 600 600 Output Total 500 Balance 100 600 Lab Results - Last 24 hrs: Laboratory Results - last 24 hr 08/29/18 08/29/18 08/29/18 Range/Units 08:00 08:00 08:29 WBC (4.0-11.0) K/uL RBC (4.50-5.90) M/uL Hgb (13.0-17.0) g/dL Hct (38.0-50.0) % MCV (80.0-98.0) fL MCH (27.0-32.0) pg MCHC (31.0-37.0) g/dL RDW Std Deviation (28.0-62.0) fl RDW Coeff of Ally (11.0-15.0) % Plt Count (150-400) K/uL MPV (7.40-12.00) fL Neut % (Auto) (48.0-80.0) % Lymph % (Auto) (16.0-40.0) % [place] % (Auto) (0.0-15.0) % Eos % (Auto) (0.0-7.0) % Baso % (Auto) (0.0-1.5) % Neut # (Auto) (1.4-5.7) K/uL Lymph # (Auto) (0.6-2.4) K/uL [place] # (Auto) (0.0-0.8) K/uL Eos # (Auto) (0.0-0.7) K/uL Baso # (Auto) (0.0-0.1) K/uL Nucleated RBC % /100WBC Nucleated RBCs # K/uL Lactate (0.20-2.00) mmol/L Sodium 135 L (136-148) mmol/L Potassium 3.4 L (3.5-5.1) mmol/L Chloride 106 (98-107) mmol/L Carbon Dioxide 20.0 L (21.0-32.0) mmol/L Anion Gap BUN 14 (7.0-18.0) mg/dL Creatinine 1.1 (0.8-1.3) mg/dL Est Cr Clr Drug Dosing 118.27 mL/min Estimated GFR (MDRD) > 60.0 ml/min BUN/Creatinine Ratio Glucose 213 H (74-106) mg/dL POC Glucose 154 H (60-110) mg/dL Calcium 8.8 (8.5-10.1) mg/dL Phosphorus 2.2 L (2.6-4.7) mg/dL Magnesium 1.9 (1.8-2.4) mg/dL Albumin (3.4-5.0) g/dL 08/29/18 08/29/18 08/29/18 Range/Units 09:21 09:58 10:31 WBC (4.0-11.0) K/uL RBC (4.50-5.90) M/uL Hgb (13.0-17.0) g/dL Hct (38.0-50.0) % MCV (80.0-98.0) fL MCH (27.0-32.0) pg MCHC (31.0-37.0) g/dL RDW Std Deviation (28.0-62.0) fl RDW Coeff of Ally (11.0-15.0) % Plt Count (150-400) K/uL MPV (7.40-12.00) fL Neut % (Auto) (48.0-80.0) % Lymph % (Auto) (16.0-40.0) % [place] % (Auto) (0.0-15.0) % Eos % (Auto) (0.0-7.0) % Baso % (Auto) (0.0-1.5) % Neut # (Auto) (1.4-5.7) K/uL Lymph # (Auto) (0.6-2.4) K/uL [place] # (Auto) (0.0-0.8) K/uL Eos # (Auto) (0.0-0.7) K/uL Baso # (Auto) (0.0-0.1) K/uL Nucleated RBC % /100WBC Nucleated RBCs # K/uL Lactate 1.1 (0.20-2.00) mmol/L Sodium (136-148) mmol/L Potassium (3.5-5.1) mmol/L Chloride (98-107) mmol/L Carbon Dioxide (21.0-32.0) mmol/L Anion Gap BUN (7.0-18.0) mg/dL Creatinine (0.8-1.3) mg/dL Est Cr Clr Drug Dosing mL/min Estimated GFR (MDRD) ml/min BUN/Creatinine Ratio Glucose (74-106) mg/dL POC Glucose 102 46 L (60-110) mg/dL Calcium (8.5-10.1) mg/dL Phosphorus (2.6-4.7) mg/dL Magnesium (1.8-2.4) mg/dL Albumin (3.4-5.0) g/dL 08/29/18 08/29/18 08/29/18 Range/Units 11:01 11:59 12:10 WBC (4.0-11.0) K/uL RBC (4.50-5.90) M/uL Hgb (13.0-17.0) g/dL Hct (38.0-50.0) % MCV (80.0-98.0) fL MCH (27.0-32.0) pg MCHC (31.0-37.0) g/dL RDW Std Deviation (28.0-62.0) fl RDW Coeff of Ally (11.0-15.0) % Plt Count (150-400) K/uL MPV (7.40-12.00) fL Neut % (Auto) (48.0-80.0) % Lymph % (Auto) (16.0-40.0) % [place] % (Auto) (0.0-15.0) % Eos % (Auto) (0.0-7.0) % Baso % (Auto) (0.0-1.5) % Neut # (Auto) (1.4-5.7) K/uL Lymph # (Auto) (0.6-2.4) K/uL [place] # (Auto) (0.0-0.8) K/uL Eos # (Auto) (0.0-0.7) K/uL Baso # (Auto) (0.0-0.1) K/uL Nucleated RBC % /100WBC Nucleated RBCs # K/uL Lactate (0.20-2.00) mmol/L Sodium 136 (136-148) mmol/L Potassium 4.4 (3.5-5.1) mmol/L Chloride 107 (98-107) mmol/L Carbon Dioxide 17.9 L (21.0-32.0) mmol/L Anion Gap BUN 14 (7.0-18.0) mg/dL Creatinine 1.0 (0.8-1.3) mg/dL Est Cr Clr Drug Dosing 130.09 mL/min Estimated GFR (MDRD) > 60.0 ml/min BUN/Creatinine Ratio Glucose 184 H (74-106) mg/dL POC Glucose 123 H 154 H (60-110) mg/dL Calcium 8.2 L (8.5-10.1) mg/dL Phosphorus (2.6-4.7) mg/dL Magnesium (1.8-2.4) mg/dL Albumin (3.4-5.0) g/dL 08/29/18 08/29/18 08/29/18 Range/Units 12:10 13:51 18:03 WBC (4.0-11.0) K/uL RBC (4.50-5.90) M/uL Hgb (13.0-17.0) g/dL Hct (38.0-50.0) % MCV (80.0-98.0) fL MCH (27.0-32.0) pg MCHC (31.0-37.0) g/dL RDW Std Deviation (28.0-62.0) fl RDW Coeff of Ally (11.0-15.0) % Plt Count (150-400) K/uL MPV (7.40-12.00) fL Neut % (Auto) (48.0-80.0) % Lymph % (Auto) (16.0-40.0) % [place] % (Auto) (0.0-15.0) % Eos % (Auto) (0.0-7.0) % Baso % (Auto) (0.0-1.5) % Neut # (Auto) (1.4-5.7) K/uL Lymph # (Auto) (0.6-2.4) K/uL [place] # (Auto) (0.0-0.8) K/uL Eos # (Auto) (0.0-0.7) K/uL Baso # (Auto) (0.0-0.1) K/uL Nucleated RBC % /100WBC Nucleated RBCs # K/uL Lactate (0.20-2.00) mmol/L Sodium 137 (136-148) mmol/L Potassium 4.5 (3.5-5.1) mmol/L Chloride 107 (98-107) mmol/L Carbon Dioxide 18.7 L (21.0-32.0) mmol/L Anion Gap 15.8 BUN 14 (7.0-18.0) mg/dL Creatinine 0.9 (0.8-1.3) mg/dL Est Cr Clr Drug Dosing 144.55 mL/min Estimated GFR (MDRD) > 60.0 ml/min BUN/Creatinine Ratio 15.55 Glucose 185 H (74-106) mg/dL POC Glucose 196 H 135 H (60-110) mg/dL Calcium 8.3 L (8.5-10.1) mg/dL Phosphorus 4.1 (2.6-4.7) mg/dL Magnesium 1.7 L (1.8-2.4) mg/dL Albumin 3.1 L (3.4-5.0) g/dL 08/29/18 08/30/18 08/30/18 Range/Units 22:17 01:55 06:16 WBC (4.0-11.0) K/uL RBC (4.50-5.90) M/uL Hgb (13.0-17.0) g/dL Hct (38.0-50.0) % MCV (80.0-98.0) fL MCH (27.0-32.0) pg MCHC (31.0-37.0) g/dL RDW Std Deviation (28.0-62.0) fl RDW Coeff of Ally (11.0-15.0) % Plt Count (150-400) K/uL MPV (7.40-12.00) fL Neut % (Auto) (48.0-80.0) % Lymph % (Auto) (16.0-40.0) % [place] % (Auto) (0.0-15.0) % Eos % (Auto) (0.0-7.0) % Baso % (Auto) (0.0-1.5) % Neut # (Auto) (1.4-5.7) K/uL Lymph # (Auto) (0.6-2.4) K/uL [place] # (Auto) (0.0-0.8) K/uL Eos # (Auto) (0.0-0.7) K/uL Baso # (Auto) (0.0-0.1) K/uL Nucleated RBC % /100WBC Nucleated RBCs # K/uL Lactate (0.20-2.00) mmol/L Sodium (136-148) mmol/L Potassium (3.5-5.1) mmol/L Chloride (98-107) mmol/L Carbon Dioxide (21.0-32.0) mmol/L Anion Gap BUN (7.0-18.0) mg/dL Creatinine (0.8-1.3) mg/dL Est Cr Clr Drug Dosing mL/min Estimated GFR (MDRD) ml/min BUN/Creatinine Ratio Glucose (74-106) mg/dL POC Glucose 172 H 251 H 284 H (60-110) mg/dL Calcium (8.5-10.1) mg/dL Phosphorus (2.6-4.7) mg/dL Magnesium (1.8-2.4) mg/dL Albumin (3.4-5.0) g/dL 08/30/18 08/30/18 Range/Units 06:23 06:23 WBC 8.55 (4.0-11.0) K/uL RBC 4.53 (4.50-5.90) M/uL Hgb 13.1 (13.0-17.0) g/dL Hct 37.7 L (38.0-50.0) % MCV 83.2 (80.0-98.0) fL MCH 28.9 (27.0-32.0) pg MCHC 34.7 (31.0-37.0) g/dL RDW Std Deviation 40.5 (28.0-62.0) fl RDW Coeff of Ally 13 (11.0-15.0) % Plt Count 195 (150-400) K/uL MPV 10.00 (7.40-12.00) fL Neut % (Auto) 62.2 (48.0-80.0) % Lymph % (Auto) 26.8 (16.0-40.0) % [place] % (Auto) 8.4 (0.0-15.0) % Eos % (Auto) 2.1 (0.0-7.0) % Baso % (Auto) 0.5 (0.0-1.5) % Neut # (Auto) 5.3 (1.4-5.7) K/uL Lymph # (Auto) 2.3 (0.6-2.4) K/uL [place] # (Auto) 0.7 (0.0-0.8) K/uL Eos # (Auto) 0.2 (0.0-0.7) K/uL Baso # (Auto) 0.0 (0.0-0.1) K/uL Nucleated RBC % 0.0 /100WBC Nucleated RBCs # 0 K/uL Lactate (0.20-2.00) mmol/L Sodium 137 (136-148) mmol/L Potassium 3.8 (3.5-5.1) mmol/L Chloride 105 (98-107) mmol/L Carbon Dioxide 21.5 (21.0-32.0) mmol/L Anion Gap BUN 9 (7.0-18.0) mg/dL Creatinine 0.8 (0.8-1.3) mg/dL Est Cr Clr Drug Dosing 158.77 mL/min Estimated GFR (MDRD) > 60.0 ml/min BUN/Creatinine Ratio Glucose 296 H (74-106) mg/dL POC Glucose (60-110) mg/dL Calcium 8.3 L (8.5-10.1) mg/dL Phosphorus (2.6-4.7) mg/dL Magnesium (1.8-2.4) mg/dL Albumin (3.4-5.0) g/dL Med Orders - Current: Current Medications Sodium Chloride (Normal Saline) 1,000 mls @ 125 mls/hr IV ASDIRECTED LIZANDRO Last Admin: 08/28/18 21:38 Dose: 125 mls/hr Sodium Chloride (Normal Saline) 1,000 mls @ 200 mls/hr IV ASDIRECTED LIZANDRO Last Admin: 08/28/18 23:36 Dose: 200 mls/hr Potassium Chloride/Dextrose/Sod Cl (D5 1/2 Ns W/ 20 Meq/L Kcl) 1,000 mls @ 150 mls/hr IV ASDIRECTED LIZANDRO Last Infusion: 08/29/18 10:38 Dose: 100 mls/hr Insulin Human Regular 100 unit (/ Sodium Chloride) 100 mls @ 27 mls/hr IV TITRATE LIZANDRO; Protocol Last Titration: 08/29/18 10:30 Dose: 0 unit/hr, 0 mls/hr Nicotine (Habitrol) 21 mg TRDERM Q24H LIZANDRO Last Admin: 08/29/18 13:06 Dose: 21 mg Ondansetron HCl (Zofran Odt) 4 mg PO Q4H PRN PRN Reason: nausea, able to take PO Sodium Chloride (Saline Flush) 10 ml FLUSH ASDIRECTED PRN PRN Reason: Keep Vein Open Last Admin: 08/28/18 20:56 Dose: 10 ml Sodium Chloride (Saline Flush) 2.5 ml FLUSH ASDIRECTED PRN PRN Reason: Keep Vein Open Last Admin: 08/28/18 20:57 Dose: 2.5 ml Discontinued Medications Sodium Chloride (Normal Saline) 1,000 mls @ 999 mls/hr IV STAT ONE Stop: 08/28/18 21:27 Last Admin: 08/28/18 20:42 Dose: 999 mls/hr Insulin Human Regular 100 unit (/ Sodium Chloride) 100 mls @ 7 mls/hr IV TITRATE LIZANDRO; Protocol Last Titration: 08/29/18 08:33 Dose: Infused Dextrose/Sodium Chloride (Dextrose 5%-Normal Saline) 1,000 mls @ 200 mls/hr IV ASDIRECTED LIZANDRO Last Admin: 08/29/18 02:37 Dose: 200 mls/hr Potassium Chloride 20 meq/ (Dextrose/Sodium Chloride) 1,010 mls @ 150 mls/hr IV ASDIRECTED LIZANDRO Potassium Phosphate 30 mmole/ (Sodium Chloride) 510 mls @ 127.5 mls/hr IV NOW ONE Stop: 08/29/18 13:29 Last Admin: 08/29/18 09:32 Dose: 127.5 mls/hr Magnesium Sulfate 2 gm/ Premix 50 mls @ 50 mls/hr IV ONETIME ONE Stop: 08/29/18 14:08 Last Admin: 08/29/18 13:44 Dose: 50 mls/hr Insulin Human Regular (Novolin R) 15 unit SUBCUT ONETIME ONE; Protocol Stop: 08/29/18 20:29 Insulin Human Regular (Novolin R) 15 unit SUBCUT ONETIME ONE; Protocol Stop: 08/28/18 20:29 Last Admin: 08/28/18 20:56 Dose: 15 units Ketorolac Tromethamine (Toradol) 30 mg IVPUSH ONETIME ONE Stop: 08/28/18 20:28 Last Admin: 08/28/18 20:43 Dose: 30 mg Ondansetron HCl (Zofran) 4 mg IVPUSH ONETIME ONE Stop: 08/28/18 20:28 Last Admin: 08/28/18 20:44 Dose: 4 mg
--- NOTE | 2018-08-31 15:00 | CR ---
EXAM DATE: 08/28/18 PATIENT'S AGE: 22 Patient: BE GRAVES Facility: [place], [place] Site . Site : 1995 Study: XRay Chest [id number]/11/2019 8:47:36 PM Ordering Physician: Marilu Olvera Final Report: INDICATION: Chest pain and shortness of breath. Lightheaded. TECHNIQUE: Chest 1 view COMPARISON: None FINDINGS: Cardiovascular and mediastinum: Heart size and vasculature are normal in caliber and appearance. Lungs and pleural spaces: Lungs are clear. No sign of infiltrate or mass. No sign of pleural effusion. No pneumothorax. Bones and soft tissues: No significant findings. IMPRESSION: No acute or significant findings. Dictated by Stephen Marcelino MD @ Aug 28 2018 8:53PM (Electronic Signature) Report Signed by Proxy. KEATON
== END 2018-08-30 09:50 | disposition home or self-care (01) | DRG 420 ==
LOC: MW.ED 20:18 → MW.ICU 21:53 → MW.MS 08-29 14:48
PROVIDERS: ADMIT Internal Medicine; ATTEND Internal Medicine
DX: E10.10 Type 1 diabetes mellitus with ketoacidosis without coma (principal); E83.42 Hypomagnesemia; F41.9 Anxiety disorder, unspecified; F32.9 Major depressive disorder, single episode, unspecified; F17.210 Nicotine dependence, cigarettes, uncomplicated; Z96.41 Presence of insulin pump (external) (internal); Z79.899 Other long term (current) drug therapy
CPT/HCPCS: 36415; 71045; 71045-26; 80048; 80053; 80069; 81001; 82009; 82803; 82962; 83036; 83605; 83690; 83735; 84100; 84484; 85025; 87040; 93005; 96360; 96361; 96365; 96375; 99285-25; A9270-GY; J1815-GY; J1885; J2405; J3475; J3480; J7030; J7040; J7042